=== PATIENT | female | born 1950 | race Caucasian/White ===

== ENCOUNTER 2023-02-15 02:02 | Emergency (ER) | payer OTHER, SELFPAY ==
[2023-02-15 02:05] VITALS: BP 168/65; PULSE 65; RESP 16; TEMP 36.6; O2SAT 99
--- NOTE | 2023-02-15 02:05 | W.ED.GENAD ---
Discharge Plan Discharge Details Chief Complaint: Trauma Clinical Impression: Nasal bone fractures, Hx of falling, Thyroid nodule, Incidentaloma of thyroid gland, Laceration of nose Primary Care Provider: None,None ED Provider: Jose Mccloud Home Meds and New Rx's Prescriptions: New amoxicillin-pot clavulanate 875-125 mg tablet 1 tab PO BID 7 Days Qty: 14 0RF No Action losartan-hydrochlorothiazide [Hyzaar] 100-25 mg tablet 1 tab PO DAILY metoprolol succinate 50 mg tablet extended release 24 hr 50 mg PO DAILY Discharge Instructions Additional Instructions: You were found to have a thyroid nodule. Please follow-up with your primary care provider as you will likely benefit from a ultrasound of your thyroid to further assess this incidental finding. You are found to have nasal bone fractures. Please do not blow your nose. Please follow-up with an ear nose and throat team when you are home in the next 1 to 2 weeks. Given your bleeding there is concern a fracture could be open and you are receiving an antibiotic that you should take as directed. Please return to the emergency department if you develop fevers chills worsening pain. HPI General Date/Time Provider Initiated Documentation: 02/15/23 02:05. HPI Narrative: MDM Primary survey intact. Reassuring shock index. On secondary survey patient has 2 small lacerations to the bridge of her nose with traumatic epistaxis. She has a midline cervical spinal pain for which she will undergo CT cervical spine but she has no neurological deficits. She is in a rigid cervical collar. Given head strike will obtain CT head based on age and [place] CT head rules. Based on facial trauma will also obtain CT maxillofacial cuts. We will update tetanus status. She does have bruising to her left knee for which she will obtain a left knee x-ray. She has clear lungs and no hypoxia so my suspicion is low for pneumothorax however will obtain a chest x-ray. Pelvis stable and the patient has been ambulatory since fall however will obtain an pelvis x-ray. Will defer laboratory evaluations this point time. No preceding chest pain nor dizziness so doubt ACS and PE respectively. 4:20 AM Virtual radiology report as follows ADDENDUM: Correction: 1.2 cm right thyroid nodule. Initial Report created on 02/15/2023 4:17 AM Eastern Time ([place] & [place]): PROCEDURE INFORMATION: Exam: CT Head Without Contrast Exam date and time: 02/15/2023 3:03 AM Age: 72 years old Clinical indication: Injury or trauma; Fall; Blunt trauma (contusions or hematomas); Consciousness not specified; Head/scalp; Loss of consciousness not known; Additional info: PT fell down flight of stairs, head strike, knee pain TECHNIQUE: Imaging protocol: Computed tomography of the head without contrast. COMPARISON: No relevant prior studies available. FINDINGS: Brain: No intracranial hemorrhage appreciated. No significant focal mass effect or significant midline shift. Cerebral ventricles: No disproportionate ventriculomegaly. Paranasal sinuses: Mucosal thickening in the ethmoid air cells. Fluid in the right sphenoid sinus. Mastoid air cells: No mastoid effusion. Bones/joints: Facial bone fractures and soft tissue abnormalities. CT scan of the facial bones dictated separately. Soft tissues: See Bones/joints finding. IMPRESSION: 1. No intracranial sequelae of trauma appreciated. 2. Additional studies dictated separately. PROCEDURE INFORMATION: Exam: CT Maxillofacial Without Contrast Exam date and time: 02/15/2023 3:03 AM Age: 72 years old Clinical indication: Injury or trauma; Fall; Blunt trauma (contusions or hematomas); Consciousness not specified; Head/scalp; Loss of consciousness not known; Additional info: PT fell down flight of stairs, head strike, knee pain TECHNIQUE: Imaging protocol: Computed tomography of the face without contrast. COMPARISON: No relevant prior studies available. FINDINGS: Limitations: Artifact from metallic dental hardware obscures surrounding tissues. Orbital cavities: Globes intact. Bones/joints: Comminuted bilateral nasal bone fractures with displacement and overlying soft tissue swelling. Linear lucencies in the mandible bilaterally appear to represent vascular channels. Nondisplaced fractures considered less likely difficult to exclude with certainty. Correlate clinically for tenderness in this area. Paranasal sinuses: Fluid in the right sphenoid sinus. Lymph nodes: Bilateral cervical lymph nodes. Soft tissues: Extensive abnormal soft tissue gas in the face bilaterally. IMPRESSION: 1. Bilateral nasal bone fractures. 2. Extensive abnormal soft tissue gas in the face. 3. Additional findings as above. 4. Additional studies dictated separately. PROCEDURE INFORMATION: Exam: CT Cervical Spine Without Contrast Exam date and time: 02/15/2023 3:03 AM Age: 72 years old Clinical indication: Injury or trauma; Fall; Blunt trauma (contusions or hematomas); Consciousness not specified; Head/scalp; Loss of consciousness not known; Additional info: PT fell down flight of stairs, head strike, knee pain TECHNIQUE: Imaging protocol: Computed tomography of the cervical spine without contrast. COMPARISON: No relevant prior studies available. FINDINGS: Limitations: Artifact from metallic dental hardware obscures surrounding tissues. Bones/joints: No definite cervical spine fracture identified. Linear lucencies in the left transverse processes of C7 and T2 and left 1st rib appear to represent vascular channels. Multilevel degenerative changes. At C3-C4 there is moderate bilateral foraminal narrowing. At C4-C5 there is mild left foraminal narrowing. At C5-C6 there is moderate left foraminal narrowing. Straightening of the normal cervical lordosis may reflect positioning or muscle spasm; correlate clinically. Lungs: No acute findings. Thyroid: 2 cm right thyroid nodule. Consider follow-up. Soft tissues: See Bones/joints finding. IMPRESSION: 1. No definite acute cervical spine fracture identified. 2. Linear lucencies in the left transverse processes of C7 and T2 and left 1st rib appear to represent vascular channels. Cannot definitively exclude fracture. Follow-up as clinically warranted. 3. Nonacute findings for which follow-up may be indicated, as outlined above. Dictated and Authenticated by: Nellie Urena MD [address] Pimentel from the trauma team at [facility]. She advised completing the patient's CAT scan with a CT chest abdomen pelvis with IV contrast given concern in thoracic spine for possible fracture. She also advised adding on reconstructions of the T and L spines. Finally she recommended a CTA of the patient's neck given concern for possible C7 TP fracture. Will order imaging and reassess. We will call [facility] back if repeat reads show continued concerns for cervical spinal fracture. I advised patient and family of incidental finding of thyroid nodule. I advised that primary care would likely follow-up with an ultrasound. I closed patient's lacerations. 5:38 AM CBC with leukocytosis but no anemia nor thrombocytopenia. 5:50 AM Basic metabolic panel showing very mild hypokalemia with a serum potassium of 3.3. Mildly elevated creatinine at 1.1 but GFR greater than 30. Hyperglycemia but no anion gap. Normal bicarbonate. Not consistent with DKA. 6:15 AM Chest x-ray read as negative per virtual radiology: IMPRESSION: No acute posttraumatic abnormality in the chest. Dictated and Authenticated by: Charu Mcclellan MD Left knee read also as negative per virtual radiology: IMPRESSION: No fracture or malalignment in the left knee. Dictated and Authenticated by: Charu Mcclellan MD Pelvis read as technically negative per virtual radiology: IMPRESSION: Technically limited study. No visible acute fracture in the pelvis. If there is high clinical concern for occult fracture, consider further evaluation with CT or MRI. Dictated and Authenticated by: Charu Mcclellan MD 6:37 AM Patient back from CT and in no acute distress. She declines additional analgesia. She wants to remove her collar. I advised that she needs to wait until her CT is read to ensure that she does not have a fracture. Will sign patient out to the oncoming daytime provider pending CT read and ultimate disposition. If patient has a persistent concern for fracture or any traumatic injuries in her chest abdomen pelvis she will require repeat consultation with [facility]. Chronic conditions affecting the care of the patient: Elevated BMI History obtained from an outside historian: Patient's son and [id number] External record review: No [facility] EMR records [Diagnostic interpretations performed by me:] [Per my independent interpretation chest x-ray shows:] No acute cardiopulmonary process. Medications: Fentanyl Social determinants of health affecting disposition: N/A Management discussed with: Trauma surgery at [facility] Treatment/interventions considered: Narayan scan but deferred given limited mechanism and reassuring exam Response to therapies provided: Improved pain and nausea HPI This is a 72-year-old female arrived to the emergency department following a fall. Patient is visiting her son in the area. She reports that she fell down 4 carpeted steps this evening after losing her balance. She did not lose consciousness. She hit her face and her nose and she is complaining of pain in her neck. She did not complain of any back pain. She was trying to go to the bathroom but when in the wrong door and down some stairs. Collar was placed on arrival. She was in her usual state of health earlier this evening and denies any preceding chest pain shortness of breath nausea vomiting and dizziness. She takes outpatient metoprolol hydrochlorothiazide and losartan. Exam General: Uncomfortable-appearing in no acute distress speaking in complete sentences. Lying supine in stretcher Head: Normocephalic, atraumatic. Eye:[Pupils equal, round reactive to light.] Extraocular eye movements intact. No conjunctival injection. No scleral icterus. Ear, nose, mouth, throat: Trace epistaxis. No septal hematoma. 2 small lacerations to bridge of nose. Normal voice, handling secretions normally. No signs of intraoral trauma. Neck: Trachea midline. Midline cervical spinal tenderness. Cardiovascular: Well-perfused distal extremities. Regular rate and rhythm Respiratory: Nonlabored respiration. Clear lungs bilaterally Gastrointestinal: Nondistended abdomen. Nontender abdomen. Back: No step-offs no deformities. No midline thoracic nor lumbar spinal tenderness. No signs of trauma to back. Musculoskeletal: Mild bilateral 1+ nonpitting lower extremity edema. Moving all 4 extremities spontaneously. 5/5 strength bilateral upper and lower extremities. Lateral aspect of the left knee there is an approximately 3 x 3 cm ecchymotic area. There are some mild associated knee tenderness although patient is able to fully flex and extend her left knee. Skin: Normal for age and race, grossly normal temperature and turgor. No acute rash. Neurologic: Alert and appropriate, no apparent acute deficits. GCS 15. Psychiatric: Mood and manner are appropriate. Grooming and personal hygiene are appropriate. Related Data Home Medications Medication Instructions Recorded Confirmed amoxicillin 875 mg-potassium 1 tab PO BID 7 days #14 tabs 02/15/23 clavulanate 125 mg tablet losartan 100 1 tab PO DAILY 02/15/23 02/15/23 mg-hydrochlorothiazide 25 mg tablet (Hyzaar) metoprolol succinate 50 mg 50 mg PO DAILY 02/15/23 02/15/23 tablet,extended release 24 hr Previous Rx's Medication Instructions Recorded amoxicillin 875 mg-potassium 1 tab PO BID 7 days #14 tabs 02/15/23 clavulanate 125 mg tablet Allergies Allergy/AdvReac Type Severity Reaction Status Date / Time No Known Allergies Allergy Unverified 02/15/23 03:39 [facility] All Active Problems (Updated 02/15/23 @ 05:47 by Jose Mccloud MD) Laceration of nose (Acute) Incidentaloma of thyroid gland (Acute) Thyroid nodule (Acute) Hx of falling (Acute) Nasal bone fractures (Acute) Social History Smoking/Tobacco Use Status: Never Smoking risk assessment performed?: Yes Drug use: Never Procedures Laceration Laceration 1: Site: face (Just inferior to the nasal bridge) Size (cm): 0.5 Description: linear Depth: simple, single layer Local Anesthetic: other anesthetic (LET ) Pre-repair: wound explored and irrigated extensively Skin layer closed with: other (Prolene) Size (cm): 6-0 Number of sutures: 1 Technique: simple, interrupted Laceration 2: Site: face (Nasal bridge) Description: linear Depth: simple, single layer Local Anesthetic: other anesthetic (LET) Pre-repair: irrigated extensively Skin layer closed with: other (Prolene) Size (cm): 6-0 Number of sutures: 1 Technique: simple, interrupted
--- NOTE | 2023-02-15 02:15 | DI.RAD_ITS ---
Exam(s) XR KNEE LT 3V AP,LAT,EUGENIE EXAM: XR KNEE LT 3V AP,LAT,EUGENIE CLINICAL HISTORY: Left knee pain status post fall. TECHNIQUE: 2D digital imaging was performed. Three views. COMPARISON: No exams were available for comparison FINDINGS: BONES: No acute fracture is present. No bony destructive lesion is seen. JOINTS: Degenerative changes greatest at the medial femoral tibial joint. Joint space loose bodies. Prominent periarticular spurring. No joint effusion is seen. SOFT TISSUE: Normal. IMPRESSION: Severe degenerative changes. No acute abnormality. DATA REPOSITORY: RADIATION DOSE DELIVERED:
--- NOTE | 2023-02-15 02:15 | DI.RAD_ITS ---
Exam(s) XR PELVIS AP EXAM: XR PELVIS AP CLINICAL HISTORY: History of falling. TECHNIQUE: 2D digital imaging was performed. COMPARISON: No exams were available for comparison FINDINGS: Exam is extremely limited by poor penetration. BONES: No grossly displaced acute fracture is present. No bony destructive lesion is seen. JOINTS: No dislocation present. No joint space narrowing is present. SOFT TISSUE: Normal. IMPRESSION: Extremely limited exam. No acute abnormality visible. DATA REPOSITORY: RADIATION DOSE DELIVERED:
--- NOTE | 2023-02-15 02:15 | DI.RAD_ITS ---
Exam(s) XR CHEST 1V IN DI DEPT EXAM: XR CHEST 1V IN DI DEPT CLINICAL HISTORY: History of falling TECHNIQUE: 2D digital imaging was performed. COMPARISON: No exams were available for comparison FINDINGS: Exam limited by under penetration. LUNGS: Clear. No pleural abnormality seen. HEART: Normal enlarged. Pacemaker. AORTA: Normal diameter. BONES: Unremarkable for age. Soft tissues: Unremarkable. IMPRESSION: Limited exam peer no acute findings. DATA REPOSITORY: RADIATION DOSE DELIVERED:
[2023-02-15 02:22] VITALS: PULSE 66; RESP 18; O2SAT 100
--- NOTE | 2023-02-15 02:24 | DI.CT_ITS ---
Exam(s) CT HEAD CERV SPINE FACIAL WO EXAM: CT HEAD CERV SPINE FACIAL WO CLINICAL HISTORY: History of head strike. TECHNIQUE: Imaging Protocol: Axial computed tomography images with coronal and sagittal reformatted images were created and reviewed COMPARISON: No exams were available for comparison FINDINGS: CT Head: Ventricles and Extra axial spaces: Normal in size and morphology for the patient's age. Hemorrhage: None. Cerebral parenchyma: Normal. Midline shift: None. Brainstem/Cerebellum: Normal. Calvarium: Normal. Visualized Paranasal sinuses/Mastoids: Fluid right sphenoid sinus. Soft Tissues: Unremarkable. CT Face: Facial Bones: Comminuted, mildly displaced nasal fractures. No additional facial fractures. Sinuses and Mastoids: Unremarkable. Globes, extraocular muscles, optic nerves and retrobulbar fat: Normal. Upper aerodigestive tract: Normal. Mandible and bilateral temporomandibular joints: Normal. Soft tissues: A large amount of air seen in the nose and lips. Air also seen around right orbit. CT Cervical Spine: Bones: No acute fracture or subluxation. Degenerative changes. Prominent endplate osteophytes proj ecting in tear only, consistent with DISH. Soft Tissues: Unremarkable. Lung Apices: Clear. IMPRESSION: 1. No acute intracranial process. 2. No acute fracture or subluxation in the cervical spine. 3. Comminuted mildly displaced nasal fractures. No additional facial fractures. RADIATION DOSE DELIVERED: Total DLP DATA REPOSITORY: All CT scans at this facility are submitted to the National Radiology Data Registry (NRDR) Dose Index Registry (DIR) with the [employer] (ACR). RADIATION OPTIMIZATION: All CT scans at this facility use at least one of these dose optimization te chniques: automated exposure control; mA and/or kV adjustment per patient size (includes targeted exa ms where dose is matched to clinical indication); or iterative reconstruction.
[2023-02-15] MEDS: fentaNYL 100 MCG/2 ML VIAL 75 MCG IVP (02:37)
[2023-02-15] MEDS: Ondansetron 4 MG/2 ML VIAL ×2 (03:33→03:35)
[2023-02-15 04:12] VITALS: BP 152/69; PULSE 72; RESP 16; O2SAT 96
--- NOTE | 2023-02-15 04:18 | DI.VRAD_ITS ---
Addendum created by Nellie Urena MD on 02/15/2023 4:18:42 AM EST: ADDENDUM: Correction: 1.2 cm right thyroid nodule. Initial report created on 02/15/2023 4:17:35 AM EST: PROCEDURE INFORMATION: Exam: CT Head Without Contrast Exam date and time: 02/15/2023 3:03 AM Age: 72 years old Clinical indication: Injury or trauma; Fall; Blunt trauma (contusions or hematomas); Consciousness not specified; Head/scalp; Loss of consciousness not known; Additional info: PT fell down flight of stairs, head strike, knee pain TECHNIQUE: Imaging protocol: Computed tomography of the head without contrast. COMPARISON: No relevant prior studies available. FINDINGS: Brain: No intracranial hemorrhage appreciated. No significant focal mass effect or significant midline shift. Cerebral ventricles: No disproportionate ventriculomegaly. Paranasal sinuses: Mucosal thickening in the ethmoid air cells. Fluid in the right sphenoid sinus. Mastoid air cells: No mastoid effusion. Bones/joints: Facial bone fractures and soft tissue abnormalities. CT scan of the facial bones dictated separately. Soft tissues: See Bones/joints finding. IMPRESSION: 1. No intracranial sequelae of trauma appreciated. 2. Additional studies dictated separately. PROCEDURE INFORMATION: Exam: CT Maxillofacial Without Contrast Exam date and time: 02/15/2023 3:03 AM Age: 72 years old Clinical indication: Injury or trauma; Fall; Blunt trauma (contusions or hematomas); Consciousness not specified; Head/scalp; Loss of consciousness not known; Additional info: PT fell down flight of stairs, head strike, knee pain TECHNIQUE: Imaging protocol: Computed tomography of the face without contrast. COMPARISON: No relevant prior studies available. FINDINGS: Limitations: Artifact from metallic dental hardware obscures surrounding tissues. Orbital cavities: Globes intact. Bones/joints: Comminuted bilateral nasal bone fractures with displacement and overlying soft tissue swelling. Linear lucencies in the mandible bilaterally appear to represent vascular channels. Nondisplaced fractures considered less likely difficult to exclude with certainty. Correlate clinically for tenderness in this area. Paranasal sinuses: Fluid in the right sphenoid sinus. Lymph nodes: Bilateral cervical lymph nodes. Soft tissues: Extensive abnormal soft tissue gas in the face bilaterally. IMPRESSION: 1. Bilateral nasal bone fractures. 2. Extensive abnormal soft tissue gas in the face. 3. Additional findings as above. 4. Additional studies dictated separately. PROCEDURE INFORMATION: Exam: CT Cervical Spine Without Contrast Exam date and time: 02/15/2023 3:03 AM Age: 72 years old Clinical indication: Injury or trauma; Fall; Blunt trauma (contusions or hematomas); Consciousness not specified; Head/scalp; Loss of consciousness not known; Additional info: PT fell down flight of stairs, head strike, knee pain TECHNIQUE: Imaging protocol: Computed tomography of the cervical spine without contrast. COMPARISON: No relevant prior studies available. FINDINGS: Limitations: Artifact from metallic dental hardware obscures surrounding tissues. Bones/joints: No definite cervical spine fracture identified. Linear lucencies in the left transverse processes of C7 and T2 and left 1st rib appear to represent vascular channels. Multilevel degenerative changes. At C3-C4 there is moderate bilateral foraminal narrowing. At C4-C5 there is mild left foraminal narrowing. At C5-C6 there is moderate left foraminal narrowing. Straightening of the normal cervical lordosis may reflect positioning or muscle spasm; correlate clinically. Lungs: No acute findings. Thyroid: 2 cm right thyroid nodule. Consider follow-up. Soft tissues: See Bones/joints finding. IMPRESSION: 1. No definite acute cervical spine fracture identified. 2. Linear lucencies in the left transverse processes of C7 and T2 and left 1st rib appear to represent vascular channels. Cannot definitively exclude fracture. Follow-up as clinically warranted. 3. Nonacute findings for which follow-up may be indicated, as outlined above. Dictated and Authenticated by: Nellie Urena MD. Ordering:JOSE L Garcia MD
[2023-02-15] MEDS: Lidocaine/Epinephri/Tetracaine Topical Gel 3 ML (04:39)
--- NOTE | 2023-02-15 05:00 | DI.CT_ITS ---
Exam(s) CT THORACIC LUMBAR SPINE WO CT CHEST/ABD/PEL W EXAM: CT CHEST/ABD/PEL W CLINICAL HISTORY: Concern for possible thoracic fracture. TECHNIQUE: Imaging Protocol: Axial computed tomography images with coronal and sagittal reformatted images were created and reviewed Axial, coronal sagittal images of the thoracic and lumbar spine were reconstructed from the chest abd omen pelvic CT utilizing bone algorithm. CONTRAST MATERIAL: Intravenous: Omnipaque 350 Contrast volume:100 ml Oral: no COMPARISON: CT CT THORACIC LUMBAR SPINE WO from 02/15/[address] CAROTID NECK CTA from 02/15/2023 FINDINGS: CHEST: Tracheobronchial tree: Patent where visualized. Pulmonary parenchyma: No consolidation or dominant measurable mass. Pleura: No effusion or pneumothorax. Lymph nodes: Within normal limits. Aorta: Thoracic portion non-dilated. Heart: Mildly enlarged. Pacemaker. Bones: Prominent endplate osteophytes projecting mainly anteriorly.. No lytic or blastic lesions.No acute spine or rib fractures. No central canal stenosis. ABDOMEN and PELVIS: Liver: Normal density. No measurable mass. Gallbladder and biliary tract: No evidence of stones or wall thickening. No biliary dilatation. Pancreas: Normal density, no abnormal calcifications or inflammatory process. Spleen: Normal. Kidneys: Normal size, contour and axis. No radiodense stones or obstructive uropathy. No suspicious m asses seen. Adrenal glands: No masses seen. Aorta: Abdominal portion non-dilated. Mild atherosclerotic changes. Lymph nodes: Within normal limits. Soft tissues: Unremarkable small fatty containing umbilical hernia. Small fatty containing hernia to the left of the umbilicus. Small left fatty containing inguinal hernia. Tubing related to gastric band. Bladder: Unremarkable. Bowel: No obstruction or bowel wall thickening. Small hiatal hernia. Gastric band in place at fundus of stomach. Mild sigmoid diverticulosis. Peritoneal cavity: No ascites. No focal collection or mesenteric inflammatory response. Bones: Unrema degenerative disc changes and facet degenerative changes. No spine or pelvic fractures . Reproductive organs: Within normal limits. IMPRESSION: No acute abnormality in the chest, abdomen or pelvis.. No evidence of thoracic or lumbar spine fract ure. RADIATION DOSE DELIVERED: Total DLP DATA REPOSITORY: All CT scans at this facility are submitted to the National Radiology Data Registry (NRDR) Dose Index Registry (DIR) with the [employer] (ACR). RADIATION OPTIMIZATION: All CT scans at this facility use at least one of these dose optimization te chniques: automated exposure control; mA and/or kV adjustment per patient size (includes targeted exa ms where dose is matched to clinical indication); or iterative reconstruction.
--- NOTE | 2023-02-15 05:00 | DI.CT_ITS ---
Exam(s) CT CAROTID NECK CTA EXAM: CT CAROTID NECK CTA CLINICAL HISTORY: Concern for cervical spine fracture. TECHNIQUE: Imaging Protocol: Axial CT angiography was performed with multi-slice acquisition and mu lti-planar and 3D reconstructions. CONTRAST MATERIAL: Intravenous: Omnipaque 350 Contrast volume:100 ml COMPARISON: CT CT HEAD CERV SPINE FACIAL WO from 02/15/2023 FINDINGS: CTA Neck W: Common Carotid: Right: No dissection, occlusion or significant stenosis. 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 No dissection, oc clusion or significant stenosis. External Carotid: Right: No dissection, occlusion or significant stenosis. Left: No dissection, occlusion or significant stenosis. Internal Carotid: Right: No dissection, occlusion or significant stenosis. Left: No dissection, occlusion or significant stenosis. Vertebral Artery: Right: No dissection, occlusion or significant stenosis. Left: No dissection, occlusion or significant stenosis. Lung Apices: Respiratory motion. Pacemaker. Bones: No acute abnormality. Prominent osteophytes projecting anteriorly consistent with DISH. Soft Tissues: Nasal fractures. Surrounding soft tissue air. IMPRESSION: Normal CTA examination of the neck. No evidence of vascular injury. RADIATION DOSE DELIVERED: Total DLP DATA REPOSITORY: All CT scans at this facility are submitted to the National Radiology Data Registry (NRDR) Dose Index Registry (DIR) with the [employer] (A[employer]). RADIATION OPTIMIZATION: All CT scans at this facility use at least one of these dose optimization te chniques: automated exposure control; mA and/or kV adjustment per patient size (includes targeted exa ms where dose is matched to clinical indication); or iterative reconstruction.
[2023-02-15 05:31] LABS: Abs Immature Grans 0.05 10^3/uL (0.0-0.06); Absolute Basophil Count 0.05 10^3/uL (0.0-0.2); Absolute Eosinophil Count 0.04 10^3/uL (0.0-0.7); Absolute Lymphocyte Count 0.81 10^3/uL (1.2-3.4); Absolute Neutrophil Count 11.29 10^3/uL (1.2-6.7); Basophils % 0.4; Eosinophils % 0.3; HCT 37.2 % (36.0-46.0); Immature Grans % 0.4; Lymphocytes % 6.3; MCH 28.6 pg (27.0-33.0); MCHC 32.3 % (32.0-36.0); MCV 89 fL (80-95); MPV 9.8 fL (8.0-11.0); Monocytes % 4.7; Neutrophils % 87.9; Platelet Count 222 10^3/uL (130-400); RDW 12.7 % (11.7-14.6); RDW-SD 41.5 fL; WBC 12.84 10^3/uL (4.4-10.8)
[2023-02-15 05:41] LABS: Anion Gap 6.6 mmol/L (3-11); BUN 16 mg/dL (7-18); CO2 29.4 mmol/L (21.0-32.0); CREATININE 1.1 mg/dL (0.55-1.02); Calcium 9.6 mg/dL (8.5-10.1); Chloride 103 mmol/L (98-107); Estimated GFR 54.06 (mL/min/1.73m2); Glucose 194 mg/dL (74-106); Potassium 3.3 mmol/L (3.5-5.1); Sodium 139 mmol/L (136-145)
--- NOTE | 2023-02-15 06:12 | DI.VRAD_ITS ---
PROCEDURE INFORMATION: Exam: XR Chest Exam date and time: 02/15/2023 3:20 AM Age: 72 years old Clinical indication: Injury or trauma; Fall; Blunt trauma (contusions or hematomas); Additional info: PT fell down flight of stairs, head strike, knee pain TECHNIQUE: Imaging protocol: Radiologic exam of the chest. Views: 1 view. COMPARISON: No relevant prior studies for comparison. FINDINGS: Tubes, catheters and devices: There is a dual lead left chest pacemaker in place. Lungs: The lungs are clear and well aerated bilaterally. There is no consolidation, infiltrate, or pulmonary edema. The pulmonary vasculature is normal in caliber. Pleural spaces: No visible pneumothorax or pleural effusion on this single supine view. Heart/Mediastinum: Mild cardiomegaly. Cardiomediastinal contours are satisfactory. Bones/joints: No displaced fracture identified on this single view. IMPRESSION: No acute posttraumatic abnormality in the chest. Dictated and Authenticated by: Charu Mcclellan MD. Ordering:JOSE L Garcia MD
--- NOTE | 2023-02-15 06:13 | DI.VRAD_ITS ---
PROCEDURE INFORMATION: Exam: XR Left Knee Exam date and time: 02/15/2023 3:12 AM Age: 72 years old Clinical indication: Pain and injury or trauma; Fall; Blunt trauma; Knee; Left; Additional info: PT fell down flight of stairs, head strike, knee pain TECHNIQUE: Imaging protocol: Radiologic exam of the left knee. Views: 3 views. COMPARISON: No relevant prior studies available. FINDINGS: Bones/joints: No fractures are identified. Alignment is anatomic. There are changes of osteoarthritis in all 3 compartments, most advanced in the medial and patellofemoral compartments. No joint effusion is seen. Soft tissues: Unremarkable. IMPRESSION: No fracture or malalignment in the left knee. Dictated and Authenticated by: Charu Mcclellan MD. Ordering:JOSE L Garcia MD
--- NOTE | 2023-02-15 06:15 | DI.VRAD_ITS ---
PROCEDURE INFORMATION: Exam: XR Pelvis Exam date and time: 02/15/2023 3:24 AM Age: 72 years old Clinical indication: Injury or trauma; Fall; Blunt trauma (contusions or hematomas); Does not apply; Pelvic region; Additional info: PT fell down flight of stairs, head strike, knee pain TECHNIQUE: Imaging protocol: Radiologic exam of the pelvis. Views: 1 view. COMPARISON: No relevant prior studies available. FINDINGS: Limitations: Body habitus, underpenetration. Bones/joints: There are no visible acute fractures in the pelvis. Both femoral heads maintain spherical contour and project over the acetabular fossae. The pubic symphysis is unremarkable. Soft tissues: Unremarkable. IMPRESSION: Technically limited study. No visible acute fracture in the pelvis. If there is high clinical concern for occult fracture, consider further evaluation with CT or MRI. Dictated and Authenticated by: Charu Mcclellan MD. Ordering:JOSE L Garcia MD
[2023-02-15 06:23] VITALS: BP 155/62; PULSE 82; RESP 12; O2SAT 95
[2023-02-15] MEDS: Omnipaque 350 MG/ML 100 ML BTL IJ (06:36)
[2023-02-15] MEDS: Normal Saline - Diluent 50 ML VIAL IJ (06:37)
[2023-02-15] MEDS: Normal Saline Flush 10 ML SYR IVP (06:38)
--- NOTE | 2023-02-15 06:51 | DI.VRAD_ITS ---
PROCEDURE INFORMATION: Exam: CT Thoracic Spine Without Contrast Exam date and time: 02/15/2023 6:03 AM Age: 72 years old Clinical indication: Injury or trauma; Fall; Blunt trauma (contusions or hematomas); Injury details: PT fell down stairs; Additional info: Concern for possible thoracic spine FX TECHNIQUE: Imaging protocol: Computed tomography of the thoracic spine without contrast. COMPARISON: CT CHEST/ABD/PEL W 02/15/2023 6:03 AM FINDINGS: Bones/joints: Thoracic vertebral bodies maintain normal height and alignment. No acute fractures are identified. Thoracic kyphosis is maintained. There are multilevel endplate osteophytes with mild multilevel loss of intervertebral disc height. Soft tissues: No acute or suspicious abnormality in the paraspinal soft tissues. Please refer to the contemporaneous CT of the chest, reported separately, for discussion of extraspinal findings. IMPRESSION: No fracture or spondylolisthesis in the thoracic spine. PROCEDURE INFORMATION: Exam: CT Lumbar Spine Without Contrast Exam date and time: 02/15/2023 6:03 AM Age: 72 years old Clinical indication: Injury or trauma; Fall; Blunt trauma (contusions or hematomas); Injury details: PT fell down stairs; Additional info: Concern for possible thoracic spine FX TECHNIQUE: Imaging protocol: Computed tomography of the lumbar spine without contrast. COMPARISON: CT CHEST/ABD/PEL W 02/15/2023 6:03 AM FINDINGS: Bones/joints: There is transitional lumbosacral anatomy with 5 non rib-bearing fully lumbarized vertebral bodies and an incompletely lumbarized S1 segment with a small fully-formed disc space at S1-S2. Vertebral bodies maintain normal height. No acute fractures are identified. Lumbar lordosis is maintained. There is grade 1 anterolisthesis of L4 on L5 and of L5 on S1 on the basis of severe degenerative facet arthropathy at these levels. Multilevel findings: There are multilevel endplate osteophytes throughout the lumbar spine with multilevel loss of intervertebral disc height, most pronounced at L5-S1 where the disc is moderately diminished in height. Soft tissues: No acute or suspicious abnormality in the paraspinal soft tissues. Please refer to the contemporaneous CT of the abdomen/pelvis, reported separately, for discussion of extraspinal findings. IMPRESSION: 1. No acute fracture in the lumbar spine. 2. Multilevel lumbar spondylotic and discogenic disease, most advanced at L4-L5 and L5-S1. Dictated and Authenticated by: Charu Mcclellan MD. Ordering:JOSE L Garcia MD
--- NOTE | 2023-02-15 06:59 | DI.VRAD_ITS ---
PROCEDURE INFORMATION: Exam: CT Chest With Contrast; Diagnostic Exam date and time: 02/15/2023 6:03 AM Age: 72 years old Clinical indication: Injury or trauma; Fall; Generalized; Blunt trauma (contusions or hematomas); Injury details: PT fell down stairs; Additional info: Concern for possible thoracic spine FX TECHNIQUE: Imaging protocol: Diagnostic computed tomography of the chest with contrast. COMPARISON: CR XR CHEST 1V IN DI DEPT 02/15/2023 3:20 AM FINDINGS: Tubes, catheters and devices: Pacemaker generator in the ventral left upper chest wall. Lungs: There are mild dependent hypoventilatory changes bilaterally. The lungs are otherwise clear, without consolidation or mass. The trachea and central main airways are patent and normal in caliber. Pleural spaces: Unremarkable. No pneumothorax. No pleural effusion. Heart: The heart is mildly enlarged. There are pacemaker leads in the right atrium and right ventricle. There are no visible coronary artery calcifications. There is no pericardial effusion. Mediastinal space: No mediastinal hematoma. Lymph nodes: No pathologically enlarged mediastinal, hilar, or axillary lymph nodes. Vasculature: Normal caliber thoracic aorta and main pulmonary artery. Bones/joints: No acute fractures. Degenerative changes. Soft tissues: Unremarkable. IMPRESSION: No acute posttraumatic abnormality in the chest. PROCEDURE INFORMATION: Exam: CT Abdomen And Pelvis With Contrast Exam date and time: 02/15/2023 6:03 AM Age: 72 years old Clinical indication: Injury or trauma; Fall; Generalized; Blunt trauma (contusions or hematomas); Injury details: PT fell down stairs; Additional info: Concern for possible thoracic spine FX TECHNIQUE: Imaging protocol: Computed tomography of the abdomen and pelvis with contrast. COMPARISON: CR XR PELVIS AP 02/15/2023 3:24 AM FINDINGS: Lungs: See above. Liver: Mild hepatic steatosis. No acute abnormality. Gallbladder and bile ducts: Unremarkable. No calcified gallstones. No intrahepatic or extrahepatic biliary ductal dilation. Pancreas: Unremarkable. Spleen: Unremarkable. The spleen is normal in size. Adrenal glands: Thickening of both adrenal glands, nonspecific, possibly reflecting adrenal hyperplasia. Kidneys and ureters: No hydronephrosis or hydroureter. No suspicious renal masses. Incidental hypoattenuating cortical foci in both kidneys measure less than 1 cm, too small to characterize. Stomach and bowel: The stomach is nondilated. There is a gastric band in place. There is a tiny hiatal hernia. The small and large bowel are normal in caliber. There is mild sigmoid diverticulosis without evidence of diverticulitis. Appendix: A nondilated appendix is identified. Intraperitoneal space: Unremarkable. No ascites, fluid collection, or pneumoperitoneum. Retroperitoneal space: Unremarkable. No retroperitoneal collection or mass. Vasculature: Mild atherosclerotic mural calcification in the abdominal aorta, which is normal in caliber. Lymph nodes: No pathologically enlarged lymph nodes. Urinary bladder: Unremarkable. Reproductive: Unremarkable as visualized. Bones/joints: Degenerative changes. No acute fractures. Soft tissues: Small fat-containing left inguinal hernia. Small fat-containing umbilical and periumbilical hernias. No acute abnormality. IMPRESSION: No acute posttraumatic abnormality in the abdomen or pelvis. No evidence of visceral injury. No acute fractures. Dictated and Authenticated by: Charu Mcclellan MD. Ordering:JOSE L Garcia MD
--- NOTE | 2023-02-15 07:07 | DI.VRAD_ITS ---
PROCEDURE INFORMATION: Exam: CTA Neck With Contrast Exam date and time: 02/15/2023 5:49 AM Age: 72 years old Clinical indication: Injury or trauma; Fall; Blunt trauma; Head and neck; Injury details: PT fell down stairs; Additional info: Concern for possible cervical spine FX TECHNIQUE: Imaging protocol: Computed tomographic angiography of the neck with contrast. Exam focused on the cervical segments of the vasculature. 3D rendering (Not supervised by radiologist): MIP and/or 3D reconstructed images were created by the technologist. COMPARISON: CT HEAD CERV SPINE FACIAL WO 02/15/2023 3:03 AM FINDINGS: Tubes, catheters and devices: Left cardiac pacemaker is identified. Right common carotid artery: No stenosis. No dissection or occlusion. Right internal carotid artery: No stenosis of the extracranial segment. No dissection or occlusion. Right external carotid artery: No occlusion or stenosis of the origin. 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 Left internal carotid artery: No stenosis of the extracranial segment. No dissection or occlusion. Left external carotid artery: No occlusion or stenosis of the origin. Right vertebral artery: No stenosis. No dissection or occlusion. Left vertebral artery: The left vertebral artery is slightly hypoplastic. Thyroid: Right thyroid nodule is demonstrated measuring approximately 1.1 x 1.6 cm. Soft tissues: Normal. No significant soft tissue swelling. Bones/joints: There is spondylosis of the cervical spine. There is narrowing of the intervertebral disc space at C 5-C6. IMPRESSION: Slightly hypoplastic left vertebral artery. REFERENCES: NASCET CRITERIA. The degree of stenosis in the cervical segment of the internal carotid artery is based on NASCET criteria. Normal is no stenosis. Mild is less than 50% stenosis. Moderate is 50-69% stenosis. Severe is 70% to 99% stenosis. Total occlusion is no detectable patent lumen. Dictated and Authenticated by: Sumanth Amaya MD. Ordering:JOSE L Garcia MD
--- NOTE | 2023-02-15 07:31 | W.ED.FU ---
Date of service: 02/15/23 Time of Service: 07:31 Follow Up Plan: I signed patient out to Dr. Marinelli. His CT thoracic spine showed no fracture. CT lumbar spine was also read as negative for any acute osseous abnormalities. Her CT chest showed no acute posttraumatic abnormalities. Her CT abdomen pelvis showed no acute posttraumatic abnormalities. Her CTA of her neck was read by virtual radiology as follows: FINDINGS: Tubes, catheters and devices: Left cardiac pacemaker is identified. Right common carotid artery: No stenosis. No dissection or occlusion. Right internal carotid artery: No stenosis of the extracranial segment. No dissection or occlusion. Right external carotid artery: No occlusion or stenosis of the origin. 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 Left internal carotid artery: No stenosis of the extracranial segment. No dissection or occlusion. Left external carotid artery: No occlusion or stenosis of the origin. Right vertebral artery: No stenosis. No dissection or occlusion. Left vertebral artery: The left vertebral artery is slightly hypoplastic. Thyroid: Right thyroid nodule is demonstrated measuring approximately 1.1 x 1.6 cm. Soft tissues: Normal. No significant soft tissue swelling. Bones/joints: There is spondylosis of the cervical spine. There is narrowing of the intervertebral disc space at C 5-C6. IMPRESSION: Slightly hypoplastic left vertebral artery. REFERENCES: NASCET CRITERIA. The degree of stenosis in the cervical segment of the internal carotid artery is based on NASCET criteria. Normal is no stenosis. Mild is less than 50% stenosis. Moderate is 50- 69% stenosis. Severe is 70% to 99% stenosis. Total occlusion is no detectable patent lumen. Thank you for allowing us to participate in the care of your patient. Dictated and Authenticated by: Sumanth Amaya MD There is no clear comments on whether or not there are any cervical spinal fractures. As result [facility] [place] been paged to review the films. Dr. Marinelli will follow-up with [facility] listed call back in the near term.
--- NOTE | 2023-02-15 08:00 | DI.RAD_ITS ---
Exam(s) XR CERVICAL SP OCHOA TRAUMA 2-3V EXAM: XR CERVICAL SP OCHOA TRAUMA 2-3V CLINICAL HISTORY: standing with coller on. TECHNIQUE: 2D digital imaging was performed. Three views. COMPARISON: CT CT HEAD CERV SPINE FACIAL WO from 02/15/2023 FINDINGS: Exam was performed upright with cervical collar in place. Prominent osteophytes are again noted proj ecting anteriorly consistent with DISH. There are degenerative disc changes and prominent facet dege nerative changes. There is no evidence of fracture or subluxation. IMPRESSION: No acute abnormality. DATA REPOSITORY: RADIATION DOSE DELIVERED:
--- NOTE | 2023-02-15 09:13 | W.EDPROG ---
Date of service: 02/15/23 Time of Service: 09:13 Medical Decision Making Case was signed out to me by my colleague Dr. Mccloud. Please refer to his HPI, physical exam, assessment and plan. At time of signout we are awaiting CTA results. CTA has returned, no evidence of fracture noted on that. Did reach out to [facility] spinal surgery Dr. Batista, and discussed the case with her. She also does not see any evidence of fracture on her review of the images. No evidence of vascular injury otherwise on CTA. Patient feels well. [facility] spine recommendations at this time are to get cervical spine x-rays for later referral/comparison. Recommend hard c-collar for the next 2 weeks until Ortho spine follow-up. No other recommendations at this time otherwise. Patient stable for discharge. Patient does live in [place]. We will still place an Ortho spine referral, but give the patient her images on disc for outpatient home referral as well if needed. Discussed red flags for which to return. I have extensively reviewed the treatment plan and discharge instructions with the patient. I have addressed all patient concerns at this time. The patient was made aware of what symptoms to monitor for that would warrant a return to the emergency department. Discussed the plan with the patient, they demonstrate verbal understanding and agreement with our assessment and plan at this time. The documentation in this chart was dictated using [employer] dictation software. Please excuse any dictation errors. FINDINGS: Tubes, catheters and devices: Left cardiac pacemaker is identified. Right common carotid artery: No stenosis. No dissection or occlusion. Right internal carotid artery: No stenosis of the extracranial segment. No dissection or occlusion. Right external carotid artery: No occlusion or stenosis of the origin. 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 Left internal carotid artery: No stenosis of the extracranial segment. No dissection or occlusion. Left external carotid artery: No occlusion or stenosis of the origin. Right vertebral artery: No stenosis. No dissection or occlusion. Left vertebral artery: The left vertebral artery is slightly hypoplastic. Thyroid: Right thyroid nodule is demonstrated measuring approximately 1.1 x 1.6 cm. Soft tissues: Normal. No significant soft tissue swelling. Bones/joints: There is spondylosis of the cervical spine. There is narrowing of the intervertebral disc space at C 5-C6. IMPRESSION: Slightly hypoplastic left vertebral artery. REFERENCES: NASCET CRITERIA. The degree of stenosis in the cervical segment of the internal carotid artery is based on NASCET criteria. Normal is no stenosis. Mild is less than 50% stenosis. Moderate is 50- 69% stenosis. Severe is 70% to 99% stenosis. Total occlusion is no detectable patent lumen. Thank you for allowing us to participate in the care of your patient. Dictated and Authenticated by: Sumanth Amaya MD 02/15/2023 7:07 AM Eastern Time ([place] & [place]) Sign Out Sign Out Data: Sign Out Comment: Please follow-up CTA cervical spine to assess for concern for C7 TP fracture. Please also follow-up with CT chest abdomen pelvis with T and L recons. Patient has been written for continued discharge instructions if her trauma scan is reassuring. She has been written for amoxicillin clavulanic acid given concern for open nasal fracture. Last updated by Jose Mccloud MD at 02/15/23 06:41 Discharge Plan Disposition Patient Disposition: Home Discharge Details Clinical Impression: Nasal bone fractures, Hx of falling, Thyroid nodule, Incidentaloma of thyroid gland, Laceration of nose Primary Care Provider: None,None ED Provider: Segundo Marinelli Home Meds and New Rx's Prescriptions: New amoxicillin-pot clavulanate 875-125 mg tablet 1 tab PO BID 7 Days Qty: 14 0RF No Action losartan-hydrochlorothiazide [Hyzaar] 100-25 mg tablet 1 tab PO DAILY metoprolol succinate 50 mg tablet extended release 24 hr 50 mg PO DAILY Discharge Instructions Instructions: Head Injury (ED), Facial Laceration (ED) Additional Instructions: You were found to have a thyroid nodule. Please follow-up with your primary care provider as you will likely benefit from a ultrasound of your thyroid to further assess this incidental finding. You are found to have nasal bone fractures. Please do not blow your nose. Please follow-up with an ear nose and throat team when you are home in the next 1 to 2 weeks. Given your bleeding there is concern a fracture could be open and you are receiving an antibiotic that you should take as directed. Please return to the emergency department if you develop fevers chills worsening pain. Additionally, [facility] spine recommends maintaining a c-collar at all times for the next 2 to 3 weeks until you are able to follow-up with the spinal surgeons. Have placed a referral for you. They will contact you for an appointment time. If you have gone back to [place] by that time, please make sure to follow-up with her orthopedic customer care specialist at your home. Please take Tylenol as needed for pain. If you notice any worsening of your symptoms, or any new symptoms such as vomiting, diarrhea, fever, chills, shortness of breath, chest pain, numbness, weakness, or fainting , please return immediately to the emergency department for reevaluation. Please follow up with your primary care provider as soon as possible for reassessment and reevaluation. As always, it was a pleasure participating in your medical care today.
--- NOTE | 2023-02-15 09:13 | NUR.NOTE ---
Nursing Note:PT needs follow up with [facility] in two weeks for spine pain, fall. Marlena, ED
[2023-02-15 09:14] VITALS: BP 168/54; PULSE 60; RESP 18; TEMP 36.6; O2SAT 97
[2023-02-15 09:31] VITALS: BP 168/54; PULSE 60; RESP 18; TEMP 36.6; O2SAT 97
--- NOTE | 2023-02-18 15:55 | NUR.NOTE ---
Accessed chart to get the order for [facility] billing. Nursing Note:
== END 2023-02-15 09:52 | disposition home or self-care (01) ==
PROVIDERS: Emergency Medicine; Emergency Provider Student in an Organized Health Care Education/Training Program
DX: G50.1 Atypical facial pain (principal); S01.21XA Laceration without foreign body of nose, initial encounter; S02.2XXA Fracture of nasal bones, initial encounter for closed fracture; W10.8XXA Fall (on) (from) other stairs and steps, initial encounter; Z91.81 History of falling; E04.1 Nontoxic single thyroid nodule
CPT/HCPCS: 00123; 12001; 70498; 73562; 74177; 80048; 86850; 86900; 86901; 90471; 96361; 96372; 96374; 99284; 70450; 70486; 71045; 71260; 72040; 72125; 72128; 72131; 72170; 85025; J2405; J3010; J3490